=== PATIENT | female | born 1950 | race Caucasian/White ===

== ENCOUNTER 2017-01-02 20:38 | Emergency (ER) | payer OTHER ==
[~2017-01-02] VITALS: Ht 172.7 cm; Wt 100.0 kg
[2017-01-02 20:42] VITALS: BP 169/80; PULSE 96; RESP 16; O2SAT 96
[2017-01-02] MEDS ORDERED: HYDROcodone-APAP 5-325 mg Tablet PO ONE (21:20)
--- NOTE | 2017-01-02 21:39 | ED.REPORT ---
HPI-Extremity Problem Lower Date of Service Jan 02, 2017 ED Provider: Sandoval Godoy DO Mary Lou Zacarias is a 66-year-old woman who presents to the emergency department with worsening pain surrounding a wound on her left posterior lateral ankle. She stated that this began with treatment for dry skin, using [id number] hydration formulas that she got from right aid, she had been picking at the area , then she began to notice that it was looking more raw, and then she noticed the development of an ulcer. She had moved onto wound treatment using new skin , and honey, but the pain got worse, currently throbbing, and felt that it was necessary to report to the emergency department for evaluation. She denies any fevers, chills, additional pain with movement of her ankle, she describes throbbing at rest, particularly while supine, she says it is tender to touch from the inferior aspect and bearing weight. She denies any purulent discharge from the area. No previous history of wounds. She does not have a diagnosis of peripheral vascular disease, venous insufficiency, or diabetes. Nursing Notes Stated Complaint: POSS INFECTION LEFT HEEL Chief Complaint: Extremity Trauma Allergies: Coded Allergies: codeine (Verified Adverse Reaction, Severe, nausea, abd pain, 01/02/17) Scheduled Amoxicillin/Clav K 500-125 mg (Amoxicillin/Clav K 500-125 mg) 1 Each Tablet 1 TABLET PO BID Sulfamethoxazole/Trimeth 800-160 mg (Bactrim DS 800-160 mg) 1 Each Tablet 2 TABLET PO BID General Time Seen by MD: 21:00 Chief Complaint Ankle injury left Past Medical History Past Medical History HTN HLD HYPOTHYROIDISM Past Surgical History OOPHERECTOMY Reports: Appendectomy, Hysterectomy Family History FATHER- ALCOHOLISM MOTHER - ALIVE AND WELL Smoking History Current Every Day Smoker (15 CIG PER DAY) Social History Alcohol Use: Denies alcohol use Drug Use: Denies drug use Physical Exam General: Sitting on bedside. HEENT: Normocephalic, atraumatic, EOMI grossly, neck is supple without lymphadenopathy. Mucous membranes moist Cardiovascular: Regular rate and rhythm, no 3/6 blowing systolic murmur at RUSB , peripheral pulses 2/4 equal bilaterally. Bilateral lower extremities are warm , cap refill <3 seconds. Pulmonary: Clear to auscultation bilaterally, no W/R/R. Extremities: No edema appreciated. There is a 1 cm x 0.5cm ulcer to the posterior lateral inferior portion of the left ankle, initially covered by bandage, there is no purulence, mild bowel odor, there is no warmth to touch, there are no descending cords, there is minimal surrounding erythema, nontender. Does not pass the cutaneous layer, unable to visualize underlying fat. It is hemostatic. No crepitus. Neuro: Neurologically grossly intact, strength is equal bilaterally upper and lower extremities. MSK: Gait is antalgic, guarding weight to her left ankle, able to move extremities on their own volition, strength 5 out of 5 equal bilaterally to upper and lower extremities. She is able to rotate her ankle actively without any pain. Initial Vital Signs Vital Signs (First) Date Time Temp Pulse Resp B/P Pulse Ox O2 Delivery O2 Flow Rate FiO2 01/02/17 20:42 36.0 96 16 169/80 96 Room Air Initial VS: Reviewed Additional Physical Exam: Unable to obtain BRIDGETT. Interpretation & Diagnostics X-Ray Interpretation Xray Interpretation: IMPRESSION: No laura evidence of osteomyelitis. Plain film radiographs can be insensitive to osteomyelitis during the initial 15 days of the disease process. If there is clinical concern for osteomyelitis, then three-phase nuclear medicine bone scan is warranted. Dictated by: Yanni Estevez MD, PhD on 01/02/2017 at 21:46 Re-Eval/Medical Decision Med Decision/Clinical Course Patient was evaluated, found to have an ulcer in her left lower extremity, initial evaluation at concern for underlying necrotizing fasciitis, or possible osteomyelitis, x-ray was negative both these. She works in a [employer], and has exposure to MRSA. She was given antibiotics in the emergency department as well as Vicodin for pain. She stated mild relief from pain. Patient was instructed to follow-up with podiatry and her primary care doctor next week, to picker feeder antibiotics of Augmentin and Bactrim and begin taking them tomorrow. Red flag symptoms and return precautions were discussed with the patient, she stated understanding and agreement. Discharge & Departure Impression: Primary Impression: Ulcer of ankle Laterality: left Non-pressure ulcer stage: limited to breakdown of skin Qualified Code: L97.321 - Non-pressure chronic ulcer of left ankle limited to breakdown of skin Disposition: Home Discharge Condition All VS Reviewed: Yes Condition: Stable Patient Instructions: Acute Wound Care (ED) Additional Instructions: Thank you for entrusting us with your care. Today her ankle was evaluated, x-rays did not show that the underlying tissue or bone were involved with the infection. This is most likely due to common bacteria on the skin getting into a break in the skin. A given antibiotics while here in the emergency department, and you have been given a prescription for 2 antibiotics. Bactrim: Please take 2 pills by mouth 2 times a day for 7 days Augmentin: Please take 1 pill by mouth 2 times a day for 7 days. Please follow-up with your primary care doctor, I am also placing referral to podiatry, Cindy Singer. If you develop fever, chills, lightheadedness dizziness, rash ascending up her leg, or rapidly growing redness from around the wound, please return to the emergency department immediately. You are being given a prescription for Vicodin, please make sure you do not drink alcohol while you are taking this medication, do not take it while you are driving, and do not take it in any situation where you need to be awake and alert as it can cause drowsiness. Referrals: Laxmi Maynard (PCP) Reji Espino MD (Family) Elza Singer DPM Attending Statement I took a history of performed a physical examination. I agree with the note. This looks like an infected ulceration. She has bounding pulses with acute arterial insufficiency is unlikely. The area is not a classic region for ischemic ulcers anyways. She has no claudication symptoms. No evidence of a DVT. No calf symptoms whatsoever. This started as a crack in her skin is now infected. We will put her on appropriate antibiotics and refer to podiatry for follow-up. For some reason the blood pressure cuff could not picker feeder her blood pressure however should bounding pedal pulses and a manual blood pressure is 130 in her legs. copies to: Laxmi Maynard; Elza Singer DPM, Noah M DO Jan 02, 2017 21:17 Sandoval Godoy DO Jan 03, 2017 00:49
[2017-01-02] MEDS ORDERED: _HYDROcodone/APAP 5-325 mg Tablet PO PRN (21:40)
[2017-01-02] MEDS ORDERED: _Trimethoprim-Sulfa 160/800 mg Tablet PO SCH (21:40)
[2017-01-02] MEDS ORDERED: _Amoxicillin-Clavulanate 875-125 mg Tablet PO SCH (21:40)
[2017-01-02] MEDS ORDERED: Amoxicillin-Clav 875-125 mg Tablet PO ONE (21:45)
[2017-01-02] MEDS ORDERED: Trimethoprim-Sulfa 160 mg-800 mg Tablet PO ONE (21:45)
--- NOTE | 2017-01-02 21:48 | DRSVH ---
PROCEDURE: X-RAY LEFT ANKLE, MINIMUM THREE VIEWS ([id number]) INDICATIONS: nec fas/osteomyel eval. TECHNIQUE: 3 views of the ankle were acquired. COMPARISON: None. FINDINGS: Bones: No fractures or dislocations. Ankle mortise is normally aligned. No suspicious bony lesions . No periosteal reaction or laura bony destruction. Calcaneal bone spurs are noted. Soft tissues: No tibiotalar joint effusion. Achilles tendon appears normal. Lateral soft tissue swe lling is noted. No soft tissue gas. IMPRESSION: No laura evidence of osteomyelitis. Plain film radiographs can be insensitive to osteomy elitis during the initial 15 days of the disease process. If there is clinical concern for osteomyeli tis, then three-phase nuclear medicine bone scan is warranted. Dictated by: Yanni Estevez MD, PhD on 01/02/2017 at 21:46 Approved by: Yanni Estevez MD, PhD on 01/02/2017 at 21:47
[2017-01-02] MEDS ORDERED: AMOX1TAB11 PO (22:11)
[2017-01-02] MEDS ORDERED: SULF1TAB35 PO (22:11)
[2017-01-02 22:39] VITALS: BP 164/83; PULSE 88; RESP 16; O2SAT 98
== END 2017-01-02 23:09 | disposition home or self-care (01) ==
LOC: SED 20:38
DX: L97.321 Non-pressure chronic ulcer of left ankle limited to breakdown of skin (principal); I10 Essential (primary) hypertension; E03.9 Hypothyroidism, unspecified; E78.5 Hyperlipidemia, unspecified; F17.200 Nicotine dependence, unspecified, uncomplicated; Z88.5 Allergy status to narcotic agent

== ENCOUNTER 2017-02-02 13:58 | Inpatient (IN) | payer OTHER ==
[~2017-02-02] VITALS: Ht 172.7 cm; Wt 112.0 kg
[~2017-02-02 13:58] MED LIST: AMOX1TAB11 PO; SULF1TAB35 PO
[2017-02-02 18:45] VITALS: BP 125/76; PULSE 84; RESP 18; O2SAT 95
[2017-02-02] MEDS ORDERED: Senna-Docusate 8.6-50 mg Tablet PO PRN (19:20)
[2017-02-02] MEDS ORDERED: Polyethylene Glycol (PEG) 17 Gm Powder PO PRN (19:20)
[2017-02-02] MEDS ORDERED: Magnesium Hydroxide 355 mL Oral Suspension PO PRN (19:20)
[2017-02-02] MEDS ORDERED: Alum-Mag Hydrox-Simeth 30 mL Suspension PO PRN (19:20)
--- NOTE | 2017-02-02 19:33 | PCM.HPMED ---
Subjective Date of Service February 02, 2017 Primary Provider: Admitting Physician: Silver Tidwell Primary Care Physician: Laxmi Maynard Attending Physician: Silver Tidwell Chief Complaint: Swollen painful left foot History of Present Illness: 66-year-old female with perhaps peripheral vascular disease but no diabetes comes in after failing multiple courses of oral antibiotics and going to see outpatient building maintenance technician. She is directly admitted for IV antibiotics. 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 She denies fevers and chills. She has terrible pain that has been going on for the last month and the foot she must sleep with it down she cannot raise it up. She denies fevers chills or night sweats or anything that would be associated with sepsis. Review of Systems: Gen.: No fevers chills weight loss weight gain Eyes: no visual disturbances or blurring vision HEENT: No nose/throat drainage, no pain in ears or throat, no hearing loss Lymph: No lymph nodes noted Cardiac: No chest pain, orthopnea, PND, palpitations , pedal edema or dyspnea on exertion Pulmonary: no cough, wheezing or bringing up of sputum GI: No anorexia nausea vomiting blood or black in the stool : no dysuria hematuria urinary frequency or decrease in urine output Musculoskeletal: Joint swelling no joint pain no new muscle aches or back pain Neuro: No syncope, seizures no loss of consciousness no new focal weakness, numbness or tingling Psychiatric: New new anxiety insomnia or depression Endocrine: No new heat or cold intolerances polyuria or polydipsia Hematology: No lymphadenopathy or easy bleeding or bruising noted skin: No new rashes, stasis dermatitis painful red swollen left foot Allergies Coded Allergies: codeine (Verified Adverse Reaction, Severe, nausea, abd pain, 01/02/17) Home Medications HCTZ 25 mg daily Levoxyl 175 g daily Pravastatin 40 mg daily Elavil 30 mg at bedtime Gabapentin 300 mg at bedtime PMH ? PAD-patient states she is getting surgery to open up vessels in her legs. 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 She tells me her father of a heart attack is not clear what age when he was in to the hospital and went into DTs. Social History Hx Alcohol Use: No Hx Substance Use: No Smoking Status: Current Every Day Smoker Exam Vital Signs Vitals stable, afebrile Exam Gen.- A+ O 3 no apparent distress. Obese white female sitting up in a chair Eyes- open conjunctiva clear, pupils equal nonicteric Mouth- oral mucosa moist, no exudate ENT- ears normal, nose normal, hearing intact Neck- supple/trach midline CVS- RRR no murmur or gallop Lungs- CTA GI- NABS/NT soft, generous pannus Musc- moving 4 no obvious deformity Neuro- cranial nerves II through XII intact to gross examination, nonfocal Skin- warm and dry, no rashes/lesions/wounds noted Both feet are swollen, both feet are red, left foot is wrapped and tender I did not open the dressing Psych- pleasant and appropriate, Assessment & Plan 66-year-old female with presumed peripheral vascular disease being admitted after failing multiple outpatient treatments with antibiotics for cellulitis of the left foot. I will start her on Vanco/Zosyn and check her labs and I am going to presume she has hospital-acquired organisms that may be multi drug resistant because she has had multiple courses of oral antibiotics over the last month as well as getting in an SNF. I will probably discuss a treatment plan with infectious disease 02/03 Cellulitis left foot-as above Zosyn/vancomycin will get wound care consult and discuss further with podiatry 02/03. -Patient reports significant pain continuing Elavil and gabapentin which she states helps but Vicodin did not help her so I prescribe some morphine and Percocet Edema possible stasis dermatitis-we will elevate patient's legs Peripheral vascular disease, hypertension hyperlipidemia -Continuing HCTZ and pravastatin Tobacco abuse-cessation recommended, nicotine replacement Prophylaxis- DVT with SCDs as able and enoxaparin or heparin, GI not indicated Disposition- patient's a full code from/going home at the end of this. Cleve Costa MD February 02, 2017 19:33
[2017-02-02 19:50] LABS: BASOPHILS % (AUTO) 0.3 % (0-3); EOSINOPHILS % (AUTO) 3.8 % (0-5); MONOCYTES % (AUTO) 7.4 % (4-12); Mean Corpuscular Volume 92.6 fL (81-100); NEUTROPHILS % (AUTO) 62.8 % (40-74); Platelet Count 270 bil/L (150-400)
[2017-02-02] MEDS ORDERED: Piperacillin-Tazo 3.375 Gm Inj 3.375 GM in Dextrose 5% Minibag Plus 50 ML IV SCH (20:00)
[2017-02-02 20:12] LABS: Magnesium 1.7 mg/dL (1.6-2.6)
[2017-02-02 21:00] VITALS: BP 118/74; PULSE 78; RESP 20; O2SAT 94
[2017-02-02] MEDS ORDERED: 0.9% Sodium Chloride 250 ML ONE (21:03)
[2017-02-02] MEDS ORDERED: Vancomycin Inj 2,000 MG in 0.9% Sodium Chloride 500 ML IV ONE (21:05)
[2017-02-02] MEDS ORDERED: AMT25T PO (21:30)
[2017-02-02] MEDS ORDERED: GABA-502 PO (21:30)
[2017-02-02] MEDS ORDERED: PRAV40TA PO (21:30)
[2017-02-02] MEDS ORDERED: HYDR25TA4 PO (21:30)
[2017-02-02] MEDS ORDERED: LEVO175T5 PO (21:30)
[2017-02-02] MEDS: Vancomycin Dose per Pharmacist XX SCH ×2 (21:42→22:08)
[2017-02-02] MEDS: oxyCODONE-Acetamin 10-325 mg Tablet PO PRN (21:44)
--- NOTE | 2017-02-02 23:27 | PCM.CONPHA ---
Subjective Date of Service: February 02, 2017 Swollen painful left foot Reason for Pharmacy Consult: Vancomycin Dosing Objective Vital Signs Date Time Temp Pulse Resp B/P Pulse Ox O2 Delivery O2 Flow Rate FiO2 02/02/17 21:00 36.7 78 20 118/74 94 Room Air Weight (Kilograms): 112.000 Height (Feet): 5 Height (Inches): 8.00 Test 02/02/17 19:35 White Blood Count 12.2th/mm3 (3.8-10.1) Red Blood Count 4.87mil/mm3 (3.90-5.20) Hemoglobin 15.6g/dL (12.0-15.6) Hematocrit 45.1% (35.0-46.0) Mean Corpuscular Volume 92.6fL (81-100) Mean Corpuscular Hemoglobin 32.0pg (27.0-35.0) Mean Corpuscular Hemoglobin Concent 34.6% (32.0-37.0) Red Cell Distribution Width 13.0% (12.3-15.4) Platelet Count 270bil/L (150-400) Neutrophils (%) (Auto) 62.8% (40-74) Lymphocytes (%) (Auto) 25.4% (14-46) Monocytes (%) (Auto) 7.4% (4-12) Eosinophils (%) (Auto) 3.8% (0-5) Basophils (%) (Auto) 0.3% (0-3) Sodium Level 138mEq/L (134-144) Potassium Level 3.5mEq/L (3.5-5.2) Chloride Level 98mEq/L (97-108) Carbon Dioxide Level 22mmol/L (18-29) Blood Urea Nitrogen 11mg/dL (8-27) Creatinine 0.65mg/dL (0.57-1.00) Estimat Glomerular Filtration Rate 131mL/min (>59) Glucose Level 119mg/dL (60-99) Calcium Level 10.1mg/dL (8.5-10.1) Magnesium Level 1.7mg/dL (1.6-2.6) Total Bilirubin 0.4mg/dL (0.0-1.2) Aspartate Amino Transf (AST/SGOT) 20U/L (0-50) Alanine Aminotransferase (ALT/SGPT) 24U/L (0-32) Alkaline Phosphatase 86U/L (25-165) Total Protein 7.0g/dL (6.4-8.4) Albumin 4.0g/dL (3.4-5.0) Procalcitonin 0.03ng/mL (0.00-0.08) Hold Leroy Top Tube Received (Received) Assessment/Plan Assessment/Plan VANCOMYCIN MANAGEMENT A\ 66yo F Diabetic with Left Foot cellulitis Goal trough =10-15 Scr=0.65 ZEO=240 WBC 12.2 Received vancomycin 2000mg iv x1 at 2142 02/02 P\ Vancomycin 1500mg iv q12h with next dose at 1000 02/03 Daily creatinine and vancomycin trough 02/04 [address] [facility] February 02, 2017 23:27
[2017-02-03 00:40] VITALS: BP 122/73; PULSE 75; RESP 18; O2SAT 96
[2017-02-03] MEDS: oxyCODONE-Acetamin 10-325 mg Tablet PO PRN ×6 (01:20→21:03)
[2017-02-03] MEDS ORDERED: OMEP20TA24 PO (03:47)
[2017-02-03 04:25] VITALS: BP 121/77; PULSE 93; RESP 18; O2SAT 99
[2017-02-03] MEDS: Piperacillin-Tazo 3.375 Gm Inj 3.375 GM in Dextrose 5% Minibag Plus 50 ML IV SCH ×2 (05:49→14:08)
[2017-02-03 06:05] LABS: BASOPHILS % (AUTO) 0.5 % (0-3); EOSINOPHILS % (AUTO) 4.1 % (0-5); Mean Corpuscular Hemoglobin 31.6 pg (27.0-35.0); Mean Corpuscular Volume 92.8 fL (81-100); NEUTROPHILS % (AUTO) 58.9 % (40-74); Platelet Count 230 bil/L (150-400)
[2017-02-03 08:10] LABS: APPEARANCE,URINE CLEAR (CLEAR,HAZY); COLOR,URINE STRAW (YELLOW); OCCULT BLOOD,URINE NEGATIVE (NEGATIVE); UROBILINOGEN,URINE NORMAL (NORMAL)
[2017-02-03 08:39] VITALS: BP 114/71; PULSE 95; RESP 18; O2SAT 95
[2017-02-03] MEDS ORDERED: Vancomycin Inj 1,500 MG in 0.9% Sodium Chloride 500 ML IV SCH (10:00)
[2017-02-03] MEDS: Ondansetron 2 mg/mL 2 mL Inj IVPUSH PRN (12:01)
[2017-02-03 14:06] VITALS: BP 119/76; PULSE 91; RESP 18; O2SAT 96
[2017-02-03 16:36] VITALS: BP 125/71; PULSE 80; RESP 17; O2SAT 97
--- NOTE | 2017-02-03 17:33 | PCM.PNMED ---
Subjective Date of Service February 03, 2017 Subjective Patient feeling better, able to keep her leg up pain is better controlled. No chest pain, no dyspnea, no nausea or vomiting Exam Vital Signs Vital Sign - Last Date Time Temp Pulse Resp B/P Pulse Ox O2 Delivery O2 Flow Rate FiO2 02/03/17 16:36 36.4 80 17 125/71 97 Room Air Intake and Output 02/02/17 02/02/17 02/03/17 Cumulative From/Thru 14:59 22:59 06:59 02/02/17 18:37 - 02/03/17 05:50 Intake Total 1210 ml 1210 ml Output Total 800 ml 800 ml Balance 410 ml 410 ml Intake Oral 540 ml 540 ml IV Total 670 ml 670 ml Output Urine Total 800 ml 800 ml # Bowel Movements 0 0 Exam Gen.- A+ O 3 no apparent distress. Obese white female lying in bed Eyes- open conjunctiva clear, pupils equal nonicteric ENT- ears normal, nose normal, hearing intact Neck- supple/trach midline CVS- rate normal Lungs- normal rate no accessory muscle usage GI- NABS/NT soft, generous pannus Musc- moving 4 no obvious deformity Neuro- cranial nerves II through XII intact to gross examination, nonfocal Skin- warm and dry, no rashes/lesions/wounds noted Feet are less swollen, less erythematous and there is a wound on the left heel. Psych- pleasant and appropriate, Lab and Diagnostics Result Diagram: 02/03/1752602/03/17526 Assessment & Plan 66-year-old female with presumed peripheral vascular disease being admitted after failing multiple outpatient treatments with antibiotics for cellulitis of the left foot. I will start her on Vanco/Zosyn and check her labs and I am going to presume she has hospital-acquired organisms that may be multi drug resistant because she has had multiple courses of oral antibiotics over the last month as well as getting in an SNF. I will probably discuss a treatment plan with infectious disease 02/03 02/04 given benign pro-calcitonin levels and substantial improvement known grinding IV therapy from Vanco/Zosyn 2 Ancef will follow up labs/micro, pro- calcitonin, clinical picture in the a.m. Cellulitis left foot-as above Zosyn/vancomycin will get wound care consult and discuss further with podiatry 02/03. -Patient reports significant pain continuing Elavil and gabapentin which she states helps but Vicodin did not help her so I prescribe some morphine and Percocet Edema possible stasis dermatitis-we will elevate patient's legs Peripheral vascular disease, hypertension hyperlipidemia -Continuing HCTZ and pravastatin Tobacco abuse-cessation recommended, nicotine replacement Prophylaxis- DVT with SCDs as able and enoxaparin or heparin, GI not indicated Disposition- patient's a full code from/going home at the end of this. Cleve Costa MD February 03, 2017 17:33
[2017-02-03 19:37] VITALS: BP 127/74; PULSE 86; RESP 18; O2SAT 95
[2017-02-03] MEDS: CeFAZolin Inj 2 GM in IV Premix 1 EACH IV SCH (21:04)
[2017-02-03] MEDS: Pantoprazole 40 mg ER24 Tablet PO SCH (21:38)
[2017-02-04] MEDS: oxyCODONE-Acetamin 10-325 mg Tablet PO PRN ×4 (00:27→11:33)
[2017-02-04] MEDS: CeFAZolin Inj 2 GM in IV Premix 1 EACH IV SCH ×4 (03:07→21:08)
[2017-02-04 05:02] VITALS: BP 133/69; PULSE 79; RESP 20; O2SAT 95
[2017-02-04] MEDS ORDERED: Pantoprazole 20 mg ER24 Tablet PO SCH (06:30)
[2017-02-04 06:56] LABS: INR 0.9 ratio
[2017-02-04 06:57] LABS: BASOPHILS % (AUTO) 0.2 % (0-3); EOSINOPHILS % (AUTO) 4.3 % (0-5); MONOCYTES % (AUTO) 9.9 % (4-12); Mean Corpuscular Hemoglobin 31.8 pg (27.0-35.0); Mean Corpuscular Volume 93.5 fL (81-100); NEUTROPHILS % (AUTO) 64.5 % (40-74); Platelet Count 210 bil/L (150-400)
[2017-02-04] MEDS: Pantoprazole 40 mg ER24 Tablet PO SCH (07:17)
--- NOTE | 2017-02-04 08:28 | PCM.CHPPOD ---
Subjective Date of service February 04, 2017 History of Present Illness 66-year-old female evaluated at bedside resting comfortably in no acute distress. Patient states that she has mild discomfort associated with her left foot. Patient was admitted to [facility] be a direct admission yesterday from Dr. Elza Abarca office for treatment of an erythematous left plantar lateral foot ulceration. Patient denies any new issues overnight. She states that she has been feeling marginally better since her admission and subsequent placement on antibiotics. Allergy Allergies: Coded Allergies: codeine (Verified Adverse Reaction, Severe, nausea, abd pain, 01/02/17) Medications Amitriptyline (Amitriptyline) 25 Mg Tab 25 MG PO HS PRN PRN For Insomnia Gabapentin (Gabapentin) 300 Mg Capsule 300 MG PO HS Hydrochlorothiazide (Hydrochlorothiazide) 25 Mg Tablet 25 MG PO DAILY Levothyroxine (Levothyroxine) 175 Mcg Tablet 175 MCG PO DAILY Omeprazole Magnesium (Prilosec Otc) 20 Mg Tablet.dr 20 MG PO DAILY Pravastatin (Pravastatin) 40 Mg Tablet 40 MG PO DAILY Past Medical History Surgeries: Yes (ovarian cyst) Medical History: Surgical History: Social History Hx Alcohol Use: No Hx Substance Use: No Smoking Status: Current Every Day Smoker Podiatry Consult Exam Vital Signs Vital Sign - Last Date Time Temp Pulse Resp B/P Pulse Ox O2 Delivery O2 Flow Rate FiO2 02/04/17 05:02 36.7 79 20 133/69 95 Room Air Intake and Output 02/03/17 02/03/17 02/04/17 Cumulative From/Thru 15:00 23:00 07:00 02/02/17 18:37 - 02/04/17 06:17 Intake Total 2013 ml 840 ml 4063 ml Output Total 1200 ml 1450 ml 3450 ml Balance 813 ml -610 ml 613 ml Intake Oral 1332 ml 600 ml 2472 ml IV Total 681 ml 240 ml 1591 ml Output Urine Total 1200 ml 1450 ml 3450 ml # Bowel Movements 0 Result Diagram: 02/04/17 0615 02/04/1715 Lab Test 02/02/17 19:35 02/03/17 05:27 02/03/17 07:09 02/04/17 06:15 Magnesium Level 1.7mg/dL (1.6-2.6) Total Bilirubin 0.4mg/dL (0.0-1.2) Aspartate Amino Transf (AST/SGOT) 20U/L (0-50) Alanine Aminotransferase (ALT/SGPT) 24U/L (0-32) Alkaline Phosphatase 86U/L (25-165) Total Protein 7.0g/dL (6.4-8.4) Albumin 4.0g/dL (3.4-5.0) Hold Leroy Top Tube Received (Received) Triglycerides Level 225mg/dL (0-149) Cholesterol Level 173mg/dL (100-199) LDL Cholesterol, Calculated 93.000mg/dL (0-99) VLDL Cholesterol 45.000mg/dL HDL Cholesterol 35mg/dL (>39) Cholesterol/HDL Ratio 4.94 (0.0-4.4) Procalcitonin 0.04ng/mL (0.00-0.08) Urine Color Straw (YELLOW) Urine Appearance Clear (CLEAR,HAZY) Urine pH 6.0 (5.0-8.0) Urine Specific Anthony 1.010 (1.003-1.035) Urine Protein Negativemg/dL (NEG,TRACE) Urine Glucose (UA) Negativemg/dL (NEGATIVE) Urine Ketones Negativemg/dL (NEGATIVE) Urine Occult Blood Negative (NEGATIVE) Urine Nitrite Negative (NEGATIVE) Urine Bilirubin Negative (NEGATIVE) Urine Urobilinogen Normalmg/dL (NORMAL) Urine Leukocyte Esterase Negative (NEGATIVE) Urine RBC 0-2/hpf (0-2) Urine WBC 0-5/hpf (0-5) Urine Epithelial Cells Few/hpf (NONE-MOD) Urine Crystals None seen (NONE SEEN) Urine Bacteria Few/hpf (NONE-FEW) Urine Hyaline Casts None/lpf (NONE) Urine Granular Casts None seen (NONE SEEN) Urine Waxy Casts None seen (NONE SEEN) Urine Red Blood Cell Casts None seen (NONE SEEN) Urine White Blood Cell Casts None seen (NONE SEEN) Urine Mucus None seen (None Seen) Urine Trichomonas None seen (NONE SEEN) Urine Yeast None (NONE SEEN) Urinalysis Comment None Urine Culture Reflexed Not indicated Hold Urine Received (Received) White Blood Count 8.8th/mm3 (3.8-10.1) Red Blood Count 4.34mil/mm3 (3.90-5.20) Hemoglobin 13.8g/dL (12.0-15.6) Hematocrit 40.6% (35.0-46.0) Mean Corpuscular Volume 93.5fL (81-100) Mean Corpuscular Hemoglobin 31.8pg (27.0-35.0) Mean Corpuscular Hemoglobin Concent 34.0% (32.0-37.0) Red Cell Distribution Width 12.8% (12.3-15.4) Platelet Count 210bil/L (150-400) Neutrophils (%) (Auto) 64.5% (40-74) Lymphocytes (%) (Auto) 20.8% (14-46) Monocytes (%) (Auto) 9.9% (4-12) Eosinophils (%) (Auto) 4.3% (0-5) Basophils (%) (Auto) 0.2% (0-3) Prothrombin Time 9.6sec (8.1-12.5) Prothromb Time International Ratio 0.90ratio Sodium Level 136mEq/L (134-144) Potassium Level 4.1mEq/L (3.5-5.2) Chloride Level 96mEq/L (97-108) Carbon Dioxide Level 27mmol/L (18-29) Blood Urea Nitrogen 9mg/dL (8-27) Creatinine 0.61mg/dL (0.57-1.00) Estimat Glomerular Filtration Rate 141mL/min (>59) Glucose Level 126mg/dL (60-99) Calcium Level 9.5mg/dL (8.5-10.1) Exam General: Alert, Oriented X3, Cooperative, No Acute Distress Lower Extremities: Left: Edema localized Extremity warm Lower Extremity Pulses: Absent: Left Dorsalis Pedis Left Posterior Tibal Podiatry WOUND : Wound Location/Description Left plantar lateral foot ulceration full-thickness to subcutaneous tissue without exposed bone or tendon. There is no surrounding erythema the wound bed is 80% fibrotic with 20% red firm granulation tissue. There is minimal yellow drainage noted. There is no malodor. No fluctuance. No signs of abscess formation. The radha-ulcerative skin is intact Assessment & Plan Assessment Stable left plantar lateral foot ulceration, peripheral arterial disease Problems: Plan Wound inspected at bedside today and appears to be improving based on my discussion with Dr. Marin We will continue broad-spectrum antibiotics at this time in follow-up the wound cultures that were taken prior to her admission to narrow her antibiotics as warranted. Her wound was dressed today with Betadine soaked gauze dry sterile gauze Kerlix and a loosely applied Fabian bandage. This patient has an appointment in the near future to be evaluated for a potential bypass of her left lower extremity at [facility]. Weight-bear as tolerated with limited activity Podiatry will continue to follow, Dr. Abarca will evaluate the patient tomorrow and potentially give discharge recommendations. Ramiro Holland DPM February 04, 2017 08:28
[2017-02-04 09:20] VITALS: BP 113/71; PULSE 78; RESP 20; O2SAT 96
[2017-02-04] MEDS ORDERED: Vancomycin Serum Trough XX ONE (09:30)
[2017-02-04] MEDS: diphenhydrAMINE 25 mg Capsule PO PRN ×2 (10:37→21:02)
--- NOTE | 2017-02-04 12:30 | PCM.PNMED ---
Subjective Date of Service February 04, 2017 Subjective Patient still having pain in her legs. We are increasing gabapentin and I think I will change her over to furosemide for better diuresis. Her legs look better, she is elevating them, she is responding to cefazolin. She has seen podiatry and they have done some basic wound debridement while she has been here. She is also complaining of itching for which were going to go ahead and give her some Benadryl she is also having trouble sleeping. Exam Vital Signs Vital Sign - Last Date Time Temp Pulse Resp B/P Pulse Ox O2 Delivery O2 Flow Rate FiO2 02/04/17 09:20 36.6 78 20 113/71 96 Room Air Intake and Output 02/03/17 02/03/17 02/04/17 Cumulative From/Thru 15:00 23:00 07:00 02/02/17 18:37 - 02/04/17 06:17 Intake Total 2013 ml 840 ml 4063 ml Output Total 1200 ml 1450 ml 3450 ml Balance 813 ml -610 ml 613 ml Intake Oral 1332 ml 600 ml 2472 ml IV Total 681 ml 240 ml 1591 ml Output Urine Total 1200 ml 1450 ml 3450 ml # Bowel Movements 0 Exam Gen.- A+ O 3 no apparent distress. Obese white female lying in bed Eyes- open conjunctiva clear, pupils equal nonicteric ENT- ears normal, nose normal, hearing intact Neck- supple/trach midline CVS- rate normal Lungs- normal rate no accessory muscle usage GI- generous pannus Musc- moving 4 no obvious deformity Neuro- cranial nerves II through XII intact to gross examination, nonfocal Skin- warm and dry, no rashes/lesions/wounds noted Feet are less swollen, there is apparently erythema, left foot dressing C/D/ I I did not open it. Psych- pleasant and appropriate, Lab and Diagnostics Result Diagram: 02/04/1761402/04/17614 Assessment & Plan 66-year-old female with presumed peripheral vascular disease being admitted after failing multiple outpatient treatments with antibiotics for cellulitis of the left foot. I will start her on Vanco/Zosyn and check her labs and I am going to presume she has hospital-acquired organisms that may be multi drug resistant because she has had multiple courses of oral antibiotics over the last month as well as getting in an SNF. I will probably discuss a treatment plan with infectious disease 02/03 02/03 given benign pro-calcitonin levels and substantial improvement known grinding IV therapy from Vanco/Zosyn 2 Ancef will follow up labs/micro, pro- calcitonin, clinical picture in the a.m. 02/04 patient had debridement by podiatry 02/03, I changed her over to Ancef and she is doing well, giving a dose of furosemide and following up labs/micro-/ pro-calcitonin again in the a.m. Possible 02/05 discharge Cellulitis left foot-as above Zosyn/vancomycin will get wound care consult and discuss further with podiatry 02/03. -Patient reports significant pain continuing Elavil and gabapentin which she states helps but Vicodin did not help her so I prescribe some morphine and Percocet Edema possible stasis dermatitis-we will elevate patient's legs, furosemide 40 mg by mouth 01/31 for 1 to Peripheral vascular disease, hypertension hyperlipidemia -Continuing HCTZ and statin Tobacco abuse-cessation recommended, nicotine replacement Prophylaxis- DVT with SCDs as able and enoxaparin or heparin, GI not indicated Disposition- patient's a full code from/going home at the end of this. Cleve Costa MD February 04, 2017 12:30
[2017-02-04] MEDS: Ondansetron 2 mg/mL 2 mL Inj IVPUSH PRN (15:15)
[2017-02-04 15:39] VITALS: BP 145/83; PULSE 87; RESP 18; O2SAT 95
[2017-02-04 19:55] VITALS: BP 125/75; PULSE 87; RESP 18; O2SAT 93
--- NOTE | 2017-02-04 23:15 | PCM.PNPOD ---
Subjective Date of Service: February 04, 2017 Visit Information: Reason for Visit Cellulitis, Ulcer Left Heal Date of Admission: February 02, 2017 at 17:54 Subjective: Patient complains of some pain in her feet and feeling cold, but original wound pain is diminishing. Objective Vital Sign - Last Date Time Temp Pulse Resp B/P Pulse Ox O2 Delivery O2 Flow Rate FiO2 02/04/17 19:55 36.5 87 18 125/75 93 Room Air Intake and Output 02/03/17 02/03/17 02/04/17 Cumulative From/Thru 15:00 23:00 07:00 02/02/17 18:37 - 02/04/17 06:17 Intake Total 2013 ml 840 ml 4063 ml Output Total 1200 ml 1450 ml 3450 ml Balance 813 ml -610 ml 613 ml Intake Oral 1332 ml 600 ml 2472 ml IV Total 681 ml 240 ml 1591 ml Output Urine Total 1200 ml 1450 ml 3450 ml # Bowel Movements 0 Result Diagram: 02/04/17 0615 02/04/17 0615 Lab Test 02/02/17 19:35 02/03/17 05:27 02/03/17 07:09 02/04/17 06:15 Magnesium Level 1.7mg/dL (1.6-2.6) Total Bilirubin 0.4mg/dL (0.0-1.2) Aspartate Amino Transf (AST/SGOT) 20U/L (0-50) Alanine Aminotransferase (ALT/SGPT) 24U/L (0-32) Alkaline Phosphatase 86U/L (25-165) Total Protein 7.0g/dL (6.4-8.4) Albumin 4.0g/dL (3.4-5.0) Hold Leroy Top Tube Received (Received) Triglycerides Level 225mg/dL (0-149) Cholesterol Level 173mg/dL (100-199) LDL Cholesterol, Calculated 93.000mg/dL (0-99) VLDL Cholesterol 45.000mg/dL HDL Cholesterol 35mg/dL (>39) Cholesterol/HDL Ratio 4.94 (0.0-4.4) Procalcitonin 0.04ng/mL (0.00-0.08) Urine Color Straw (YELLOW) Urine Appearance Clear (CLEAR,HAZY) Urine pH 6.0 (5.0-8.0) Urine Specific [place] 1.010 (1.003-1.035) Urine Protein Negativemg/dL (NEG,TRACE) Urine Glucose (UA) Negativemg/dL (NEGATIVE) Urine Ketones Negativemg/dL (NEGATIVE) Urine Occult Blood Negative (NEGATIVE) Urine Nitrite Negative (NEGATIVE) Urine Bilirubin Negative (NEGATIVE) Urine Urobilinogen Normalmg/dL (NORMAL) Urine Leukocyte Esterase Negative (NEGATIVE) Urine RBC 0-2/hpf (0-2) Urine WBC 0-5/hpf (0-5) Urine Epithelial Cells Few/hpf (NONE-MOD) Urine Crystals None seen (NONE SEEN) Urine Bacteria Few/hpf (NONE-FEW) Urine Hyaline Casts None/lpf (NONE) Urine Granular Casts None seen (NONE SEEN) Urine Waxy Casts None seen (NONE SEEN) Urine Red Blood Cell Casts None seen (NONE SEEN) Urine White Blood Cell Casts None seen (NONE SEEN) Urine Mucus None seen (None Seen) Urine Trichomonas None seen (NONE SEEN) Urine Yeast None (NONE SEEN) Urinalysis Comment None Urine Culture Reflexed Not indicated Hold Urine Received (Received) White Blood Count 8.8th/mm3 (3.8-10.1) Red Blood Count 4.34mil/mm3 (3.90-5.20) Hemoglobin 13.8g/dL (12.0-15.6) Hematocrit 40.6% (35.0-46.0) Mean Corpuscular Volume 93.5fL (81-100) Mean Corpuscular Hemoglobin 31.8pg (27.0-35.0) Mean Corpuscular Hemoglobin Concent 34.0% (32.0-37.0) Red Cell Distribution Width 12.8% (12.3-15.4) Platelet Count 210bil/L (150-400) Neutrophils (%) (Auto) 64.5% (40-74) Lymphocytes (%) (Auto) 20.8% (14-46) Monocytes (%) (Auto) 9.9% (4-12) Eosinophils (%) (Auto) 4.3% (0-5) Basophils (%) (Auto) 0.2% (0-3) Prothrombin Time 9.6sec (8.1-12.5) Prothromb Time International Ratio 0.90ratio Sodium Level 136mEq/L (134-144) Potassium Level 4.1mEq/L (3.5-5.2) Chloride Level 96mEq/L (97-108) Carbon Dioxide Level 27mmol/L (18-29) Blood Urea Nitrogen 9mg/dL (8-27) Creatinine 0.61mg/dL (0.57-1.00) Estimat Glomerular Filtration Rate 141mL/min (>59) Glucose Level 126mg/dL (60-99) Calcium Level 9.5mg/dL (8.5-10.1) Exam General: Alert, Oriented X3, Cooperative, No Acute Distress Lower Extremities: Left: Edema localized Extremity warm Lower Extremity Pulses: Doppler: Right Dorsalis Pedis Right Posterior Tibal Absent: Left Dorsalis Pedis Left Posterior Tibal Podiatry WOUND : Wound Location/Description 2.5cm x 1.2xm wound, lateral left heel. 0.2cm deep, fibrous 50% and pink granular 50%. pain on palpation. Significant 2+ pitting edema in feet and lower legs. Pallor on elevation. Assessment & Plan Problems: (1) PAD (peripheral artery disease) Plan: February 16 consult with [place] vascular surgeons for inflow aortic disease. Long-term smoker, recent, non-healing wound with infection. Status: Acute ICD Code: I73.9 (2) Cellulitis Qualifiers: Site of cellulitis: extremity Site of cellulitis of extremity: lower extremity Laterality: left Qualified Code: L03.116 - Cellulitis of left lower limb Plan: Continue IV antibiotics another 24-48 hours. Find out what reasonable pain control regimen will be for next month outpatient before vascular intervention can be rendered. Expect dc home on Thursday. Dressing changed today with Betadine soaked gauze and Fabian wrap,repeat tomorrow. Status: Acute ICD Code: L03.90 Elza Singer DPM February 04, 2017 23:15
[2017-02-05] MEDS: CeFAZolin Inj 2 GM in IV Premix 1 EACH IV SCH ×4 (03:28→22:05)
[2017-02-05] MEDS: oxyCODONE-Acetamin 10-325 mg Tablet PO PRN ×4 (04:43→22:58)
[2017-02-05 05:15] VITALS: BP 113/75; PULSE 81; RESP 18; O2SAT 93
[2017-02-05 05:57] LABS: BASOPHILS % (AUTO) 0.2 % (0-3); EOSINOPHILS % (AUTO) 4.2 % (0-5); MONOCYTES % (AUTO) 7.7 % (4-12); Mean Corpuscular Hemoglobin 31.7 pg (27.0-35.0); Mean Corpuscular Volume 89.2 fL (81-100); NEUTROPHILS % (AUTO) 56.1 % (40-74); Platelet Count 228 bil/L (150-400)
[2017-02-05 06:28] LABS: Magnesium 1.6 mg/dL (1.6-2.6)
[2017-02-05] MEDS: Pantoprazole 40 mg ER24 Tablet PO SCH (08:08)
[2017-02-05] MEDS ORDERED: 0.9% Sodium Chloride 250 ML ONE (08:37)
[2017-02-05 12:59] VITALS: BP 123/78; PULSE 82; RESP 17; O2SAT 96
--- NOTE | 2017-02-05 14:16 | PCM.PNMED ---
Subjective Date of Service February 05, 2017 Subjective Still having pain and throbbing in her left foot. No chest pain, no dyspnea, no nausea or vomiting Exam Vital Signs Vital Sign - Last Date Time Temp Pulse Resp B/P Pulse Ox O2 Delivery O2 Flow Rate FiO2 02/05/17 12:59 36.3 82 17 123/78 96 Room Air Intake and Output 02/04/17 02/04/17 02/05/17 Cumulative From/Thru 15:00 23:00 07:00 02/02/17 18:37 - 02/05/17 05:15 Intake Total 1326 ml 1800 ml 7189 ml Output Total 1250 ml 2750 ml 7450 ml Balance 76 ml -950 ml -261 ml Intake Oral 1326 ml 1700 ml 5498 ml IV Total 100 ml 1691 ml Output Urine Total 1250 ml 2750 ml 7450 ml # Bowel Movements 0 0 0 Exam Gen.- A+ O 3 no apparent distress. Obese white female lying in bed Eyes- open conjunctiva clear, pupils equal nonicteric ENT- ears normal, nose normal, hearing intact Neck- supple/trach midline CVS- rate normal Lungs- normal rate no accessory muscle usage GI- generous pannus Musc- moving 4 no obvious deformity Neuro- cranial nerves II through XII intact to gross examination, nonfocal Skin- warm and dry, no rashes/lesions/wounds noted Feet are less swollen/erythema (virtually gone), left foot dressing C/D/I I did not open it. Psych- pleasant and appropriate, Lab and Diagnostics Result Diagram: 02/05/1751902/05/17519 Assessment & Plan 66-year-old female with presumed peripheral vascular disease being admitted after failing multiple outpatient treatments with antibiotics for cellulitis of the left foot. I will start her on Vanco/Zosyn and check her labs and I am going to presume she has hospital-acquired organisms that may be multi drug resistant because she has had multiple courses of oral antibiotics over the last month as well as getting in an SNF. I will probably discuss a treatment plan with infectious disease 02/03 02/03 given benign pro-calcitonin levels and substantial improvement known grinding IV therapy from Vanco/Zosyn 2 [facility] will follow up labs/micro, pro- calcitonin, clinical picture in the a.m. 02/04 patient had debridement by podiatry 02/03, I changed her over to Ancef and she is doing well, giving a dose of furosemide and following up labs/micro-/ pro-calcitonin again in the a.m. 02/05 continuing Ancef for another day for podiatry continuing diuresis with furosemide. Clinically stable/improving. Pro-calcitonin continues to remain normal. No changes to the regimen. Encouraging her to utilize gabapentin for pain. Cellulitis left foot-as above Zosyn/vancomycin will get wound care consult and discuss further with podiatry 02/03. -Patient reports significant pain continuing Elavil and gabapentin which she states helps but Vicodin did not help her so I prescribe some morphine and Percocet Edema possible stasis dermatitis-we will elevate patient's legs, furosemide 40 mg by mouth 02/04 Peripheral vascular disease, hypertension hyperlipidemia -Continuing HCTZ and statin Tobacco abuse-cessation recommended, nicotine replacement Prophylaxis- DVT with SCDs as able and enoxaparin or heparin, GI not indicated Disposition- patient's a full code from/going home at the end of this. Cleve Costa MD February 05, 2017 14:16
[2017-02-05 20:37] VITALS: BP 129/64; PULSE 95; RESP 20; O2SAT 93
[2017-02-05] MEDS: diphenhydrAMINE 25 mg Capsule PO PRN (22:15)
[2017-02-06] MEDS: CeFAZolin Inj 2 GM in IV Premix 1 EACH IV SCH ×2 (03:14→10:30)
[2017-02-06 04:40] VITALS: BP 115/77; PULSE 79; RESP 18; O2SAT 95
[2017-02-06] MEDS: Pantoprazole 40 mg ER24 Tablet PO SCH (08:05)
[2017-02-06] MEDS: oxyCODONE-Acetamin 10-325 mg Tablet PO PRN (08:17)
[2017-02-06 09:16] LABS: BASOPHILS % (AUTO) 0.3 % (0-3); EOSINOPHILS % (AUTO) 4.4 % (0-5); MONOCYTES % (AUTO) 8.7 % (4-12); Mean Corpuscular Hemoglobin 31.3 pg (27.0-35.0); NEUTROPHILS % (AUTO) 58.6 % (40-74); Platelet Count 239 bil/L (150-400)
[2017-02-06 09:54] LABS: Magnesium 1.6 mg/dL (1.6-2.6)
[2017-02-06 09:58] LABS: ERYTHROCYTE SEDIMENTATION RATE 9 mm/hr (0-40)
--- NOTE | 2017-02-06 12:46 | PCM.DIMED ---
Discharge Instructions Date of Service February 06, 2017 Dates of Hospitalization February 02, 2017 at 17:54 Discharge Diagnosis Discharge Diagnosis Left foot cellulitis, edema, peripheral vascular disease Diet Discharge Diet: Heart Healthy Activity Discharge Activity: No restrictions, Other (elevate her feet when able) Call your provider Call your provider for: Fever or Chills, Other (erythema spreading up the) Patient Instructions Patient Instructions Finish the antibiotics, take the furosemide/potassium chloride until the swelling dissipates and then as needed for swelling. Follow-up Provider: Elza Singer DPM Follow-up with PCP in: Other (call for follow-up early next week) Provider: Laxmi Maynard Follow-up in: Other (call, you may need her to be managing the furosemide and electrolytes) Cleve Costa MD February 06, 2017 12:46
[2017-02-06] MEDS ORDERED: POTA10TA38 PO (12:51)
[2017-02-06] MEDS ORDERED: OXYC-466 PO (12:51)
[2017-02-06] MEDS ORDERED: Lactobacillus Acidophilus PO (12:51)
[2017-02-06] MEDS ORDERED: NICO1PAT5 TOPICAL (12:51)
[2017-02-06] MEDS ORDERED: CEPH500T PO (12:51)
[2017-02-06] MEDS ORDERED: GABA300C PO (12:51)
[2017-02-06] MEDS ORDERED: Senna/Docusate Sodium PO (12:51)
--- NOTE | 2017-02-06 14:03 | PCM.DC.MED ---
Discharge Summary Date of Service February 06, 2017 Dates of Hospitalization Date of Hospital Admission February 02, 2017 at 17:54 Date of Discharge: February 06, 2017 Providers: Admitting Physician: Silver Tidwell Primary Care Physician: Laxmi Maynard Attending Physician: Silver Tidwell Diagnosis at Time of Discharge Diagnosis at Time of Discharge Left foot cellulitis, edema, peripheral vascular disease Consultations PodiatryEnmanuel/Skyler Brief History 66-year-old female with perhaps peripheral vascular disease but no diabetes comes in after failing multiple courses of oral antibiotics and going to see outpatient tobacco sweeper. She is directly admitted for IV antibiotics. 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 She denies fevers and chills. She has terrible pain that has been going on for the last month and the foot she must sleep with it down she cannot raise it up. She denies fevers chills or night sweats or anything that would be associated with sepsis. Hospital Course 66-year-old female with presumed peripheral vascular disease being admitted after failing multiple outpatient treatments with antibiotics for cellulitis of the left foot. I will start her on Vanco/Zosyn and check her labs and I am going to presume she has hospital-acquired organisms that may be multi drug resistant because she has had multiple courses of oral antibiotics over the last month as well as getting in an SNF. I will probably discuss a treatment plan with infectious disease 02/03 02/03 given benign pro-calcitonin levels and substantial improvement known grinding IV therapy from Vanco/Zosyn 2 Ance[facility] will follow up labs/micro, pro- calcitonin, clinical picture in the a.m. 02/04 patient had debridement by podiatry 02/03, I changed her over to Ancef and she is doing well, giving a dose of furosemide and following up labs/micro-/ pro-calcitonin again in the a.m. 02/05 continuing Ancef for another day for podiatry continuing diuresis with furosemide. Clinically stable/improving. Pro-calcitonin continues to remain normal. No changes to the regimen. Encouraging her to utilize gabapentin for pain. 02/06 patient's foot looks a little bit redder than it has labs are unremarkable, spoke to Dr. Singer will follow-up next week. We will discharge with Keflex 1 g 4 times a day for 7 days, furosemide/KCl for edema, more gabapentin and Percocet 10/325 for pain. Patient feels that she can elevate leg better. Perhaps her throbbing in her leg is from decreased arterial flow in the foot is elevated secondary to her severe peripheral vascular disease which will be hopefully corrected surgically next month. We will need to remain vigilant over that foot given the similarity of appearance from stasis dermatitis/vascular insufficiency and cellulitis. Patient has been advised to seek attention if the erythema worsens begins to creep up her leg or she has fevers or chills. Patient proudly announced that she was able to sleep with both her feet elevated without throbbing overnight, I wonder how long they have been down prior to my seeing her, she sitting up in a chair and her feet have worsened dependent edema than it has looked in days along with the erythema. Cellulitis left foot-as above Zosyn/vancomycin will get wound care consult and discuss further with podiatry 02/03. -Patient reports significant pain continuing Elavil and gabapentin which she states helps but Vicodin did not help her so I prescribe some morphine and Percocet Edema possible stasis dermatitis-we will elevate patient's legs, furosemide 40 mg by mouth 02/04 Peripheral vascular disease, hypertension hyperlipidemia -Continuing HCTZ and statin Tobacco abuse-cessation recommended, nicotine replacement Prophylaxis- DVT with SCDs as able and enoxaparin or heparin, GI not indicated Disposition- patient's a full code from/going home at the end of this. Exam Vital Signs (Last) Date Time Temp Pulse Resp B/P Pulse Ox O2 Delivery O2 Flow Rate FiO2 02/06/17 04:40 36.4 79 18 115/77 95 Room Air Exam Gen.- A+ O 3 no apparent distress. Obese white female lying in bed Eyes- open conjunctiva clear, pupils equal nonicteric ENT- ears normal, nose normal, hearing intact Neck- supple/trach midline CVS- rate normal Lungs- normal rate no accessory muscle usage GI- generous pannus Musc- moving 4 no obvious deformity Neuro- cranial nerves II through XII intact to gross examination, nonfocal Skin- warm and dry, no rashes/lesions/wounds noted Feet are less swollen/erythema as returned bilaterally along with edema, left foot wound is dressed C/D/I. Psych- pleasant and appropriate, Test 02/02/17 19:35 02/03/17 05:27 02/03/17 07:09 02/04/17 06:15 Total Bilirubin 0.4mg/dL (0.0-1.2) Aspartate Amino Transf (AST/SGOT) 20U/L (0-50) Alanine Aminotransferase (ALT/SGPT) 24U/L (0-32) Alkaline Phosphatase 86U/L (25-165) Total Protein 7.0g/dL (6.4-8.4) Albumin 4.0g/dL (3.4-5.0) Hold Leroy Top Tube Received (Received) Triglycerides Level 225mg/dL (0-149) Cholesterol Level 173mg/dL (100-199) LDL Cholesterol, Calculated 93.000mg/dL (0-99) VLDL Cholesterol 45.000mg/dL HDL Cholesterol 35mg/dL (>39) Cholesterol/HDL Ratio 4.94 (0.0-4.4) Urine Color Straw (YELLOW) Urine Appearance Clear (CLEAR,HAZY) Urine pH 6.0 (5.0-8.0) Urine Specific [place] 1.010 (1.003-1.035) Urine Protein Negativemg/dL (NEG,TRACE) Urine Glucose (UA) Negativemg/dL (NEGATIVE) Urine Ketones Negativemg/dL (NEGATIVE) Urine Occult Blood Negative (NEGATIVE) Urine Nitrite Negative (NEGATIVE) Urine Bilirubin Negative (NEGATIVE) Urine Urobilinogen Normalmg/dL (NORMAL) Urine Leukocyte Esterase Negative (NEGATIVE) Urine RBC 0-2/hpf (0-2) Urine WBC 0-5/hpf (0-5) Urine Epithelial Cells Few/hpf (NONE-MOD) Urine Crystals None seen (NONE SEEN) Urine Bacteria Few/hpf (NONE-FEW) Urine Hyaline Casts None/lpf (NONE) Urine Granular Casts None seen (NONE SEEN) Urine Waxy Casts None seen (NONE SEEN) Urine Red Blood Cell Casts None seen (NONE SEEN) Urine White Blood Cell Casts None seen (NONE SEEN) Urine Mucus None seen (None Seen) Urine Trichomonas None seen (NONE SEEN) Urine Yeast None (NONE SEEN) Urinalysis Comment None Urine Culture Reflexed Not indicated Hold Urine Received (Received) Prothrombin Time 9.6sec (8.1-12.5) Prothromb Time International Ratio 0.90ratio Test 02/06/17 09:08 White Blood Count 7.4th/mm3 (3.8-10.1) Red Blood Count 4.60mil/mm3 (3.90-5.20) Hemoglobin 14.4g/dL (12.0-15.6) Hematocrit 40.5% (35.0-46.0) Mean Corpuscular Volume 88.0fL (81-100) Mean Corpuscular Hemoglobin 31.3pg (27.0-35.0) Mean Corpuscular Hemoglobin Concent 35.6% (32.0-37.0) Red Cell Distribution Width 12.9% (12.3-15.4) Platelet Count 239bil/L (150-400) Neutrophils (%) (Auto) 58.6% (40-74) Lymphocytes (%) (Auto) 27.6% (14-46) Monocytes (%) (Auto) 8.7% (4-12) Eosinophils (%) (Auto) 4.4% (0-5) Basophils (%) (Auto) 0.3% (0-3) Erythrocyte Sedimentation Rate 9mm/hr (0-40) Sodium Level 136mEq/L (134-144) Potassium Level 3.9mEq/L (3.5-5.2) Chloride Level 95mEq/L (97-108) Carbon Dioxide Level 27mmol/L (18-29) Blood Urea Nitrogen 11mg/dL (8-27) Creatinine 0.71mg/dL (0.57-1.00) Estimat Glomerular Filtration Rate 119mL/min (>59) Glucose Level 136mg/dL (60-99) Calcium Level 9.8mg/dL (8.5-10.1) Magnesium Level 1.6mg/dL (1.6-2.6) Procalcitonin 0.06ng/mL (0.00-0.08) Discharge Medications Discharge Medications ([Lactobacillus Acidophilus]) 1 TABLET TABLET 2 TABLET PO PCHS Prescribed by: ALLIE LU MD Cephalexin (Cephalexin) 500 Mg Tablet 1,000 MG PO QID Prescribed by: ALLIE LU MD Gabapentin (Gabapentin) 300 Mg Capsule 300 MG PO HS (Reported) Hydrochlorothiazide (Hydrochlorothiazide) 25 Mg Tablet 25 MG PO DAILY (Reported ) Levothyroxine (Levothyroxine) 175 Mcg Tablet 175 MCG PO DAILY (Reported) Omeprazole Magnesium (Prilosec Otc) 20 Mg Tablet.dr 20 MG PO DAILY (Reported) Potassium Chloride (Potassium Chloride) 10 Meq Tab.er.prt 10 MEQ PO DAILYWM Prescribed by: ALLIE LU MD Pravastatin (Pravastatin) 40 Mg Tablet 40 MG PO DAILY (Reported) As needed ([Senna/Docusate Sodium]) 1 TABLET TABLET 1 TABLET PO BID PRN PRN constipation Prescribed by: ALLIE LU MD Amitriptyline (Amitriptyline) 25 Mg Tab 25 MG PO HS PRN PRN For Insomnia ( Reported) Gabapentin (Neurontin) 300 Mg Capsule 300 MG PO Q4 PRN PRN pain Prescribed by: ALLIE LU MD Nicotine 14 mg/24 hr Patch (Nicotine 14 mg/24 hr Patch) 1 Each Patch.td24 1 PATCH TOPICAL DAILY PRN PRN For Tobacco Withdrawal Prescribed by: ALLIE LU MD oxyCODONE-Acetaminophen 10-325 mg (oxyCODONE-Acetaminophen 10-325 mg) 1 Each Tablet 1 TAB PO Q3H PRN PRN For Pain Prescribed by: ALLIE LU MD Followup Plan Discharge Diet: Heart Healthy Discharge Activity: No restrictions, Other (elevate her feet when able) Patient Instructions Finish the antibiotics, take the furosemide/potassium chloride until the swelling dissipates and then as needed for swelling. Follow-up Provider: Elza Singer DPM Follow-up with PCP in: Other (call for follow-up early next week) Provider: Laxmi Maynard Follow-up in: Other (call, you may need her to be managing the furosemide and electrolytes) Time spent Greater than 30 minutes Attending Statement Patient needs CBC, BMP, mag 02/06 and if she is using the furosemide with any frequency at least weekly initially. I would have a low tolerance to reimage the foot and get cultures if pain/erythema worsens. copies to: Laxmi Maynard; Elza Singer DPM, Andris E MD February 06, 2017 14:03
[2017-02-06 14:17] VITALS: BP 129/81; PULSE 85; RESP 16; O2SAT 93
[2017-02-06] MEDS ORDERED: FURO40SO4 PO (15:33)
--- NOTE | 2017-02-06 18:14 | PCM.PNPOD ---
Subjective Date of Service: February 06, 2017 Visit Information: Reason for Visit Cellulitis, Ulcer Left Heal Date of Admission: February 02, 2017 at 17:54 Subjective: Patient still experiencing pain in left heel, more so when elevated. It improves when dependent. Percocet takes the edge off and she would like to have some outpatient until she can see her vascular surgeon. Objective Vital Sign - Last Date Time Temp Pulse Resp B/P Pulse Ox O2 Delivery O2 Flow Rate FiO2 02/06/17 14:17 36.5 85 16 129/81 93 Room Air Intake and Output 02/05/17 02/05/17 02/06/17 Cumulative From/Thru 15:00 23:00 07:00 02/02/17 18:37 - 02/06/17 06:02 Intake Total 1750 ml 1300 ml 74764 ml Output Total 1800 ml 1000 ml 18093 ml Balance -50 ml 300 ml -11 ml Intake Oral 1520 ml 1200 ml 8218 ml IV Total 230 ml 100 ml 2021 ml Output Urine Total 1800 ml 1000 ml 78936 ml # Bowel Movements 0 0 Result Diagram: 02/06/17 0908 02/06/17 0908 Lab Test 02/02/17 19:35 02/03/17 05:27 02/03/17 07:09 02/04/17 06:15 Total Bilirubin 0.4mg/dL (0.0-1.2) Aspartate Amino Transf (AST/SGOT) 20U/L (0-50) Alanine Aminotransferase (ALT/SGPT) 24U/L (0-32) Alkaline Phosphatase 86U/L (25-165) Total Protein 7.0g/dL (6.4-8.4) Albumin 4.0g/dL (3.4-5.0) Hold Leroy Top Tube Received (Received) Triglycerides Level 225mg/dL (0-149) Cholesterol Level 173mg/dL (100-199) LDL Cholesterol, Calculated 93.000mg/dL (0-99) VLDL Cholesterol 45.000mg/dL HDL Cholesterol 35mg/dL (>39) Cholesterol/HDL Ratio 4.94 (0.0-4.4) Urine Color Straw (YELLOW) Urine Appearance Clear (CLEAR,HAZY) Urine pH 6.0 (5.0-8.0) Urine Specific [place] 1.010 (1.003-1.035) Urine Protein Negativemg/dL (NEG,TRACE) Urine Glucose (UA) Negativemg/dL (NEGATIVE) Urine Ketones Negativemg/dL (NEGATIVE) Urine Occult Blood Negative (NEGATIVE) Urine Nitrite Negative (NEGATIVE) Urine Bilirubin Negative (NEGATIVE) Urine Urobilinogen Normalmg/dL (NORMAL) Urine Leukocyte Esterase Negative (NEGATIVE) Urine RBC 0-2/hpf (0-2) Urine WBC 0-5/hpf (0-5) Urine Epithelial Cells Few/hpf (NONE-MOD) Urine Crystals None seen (NONE SEEN) Urine Bacteria Few/hpf (NONE-FEW) Urine Hyaline Casts None/lpf (NONE) Urine Granular Casts None seen (NONE SEEN) Urine Waxy Casts None seen (NONE SEEN) Urine Red Blood Cell Casts None seen (NONE SEEN) Urine White Blood Cell Casts None seen (NONE SEEN) Urine Mucus None seen (None Seen) Urine Trichomonas None seen (NONE SEEN) Urine Yeast None (NONE SEEN) Urinalysis Comment None Urine Culture Reflexed Not indicated Hold Urine Received (Received) Prothrombin Time 9.6sec (8.1-12.5) Prothromb Time International Ratio 0.90ratio Test 02/06/17 09:08 White Blood Count 7.4th/mm3 (3.8-10.1) Red Blood Count 4.60mil/mm3 (3.90-5.20) Hemoglobin 14.4g/dL (12.0-15.6) Hematocrit 40.5% (35.0-46.0) Mean Corpuscular Volume 88.0fL (81-100) Mean Corpuscular Hemoglobin 31.3pg (27.0-35.0) Mean Corpuscular Hemoglobin Concent 35.6% (32.0-37.0) Red Cell Distribution Width 12.9% (12.3-15.4) Platelet Count 239bil/L (150-400) Neutrophils (%) (Auto) 58.6% (40-74) Lymphocytes (%) (Auto) 27.6% (14-46) Monocytes (%) (Auto) 8.7% (4-12) Eosinophils (%) (Auto) 4.4% (0-5) Basophils (%) (Auto) 0.3% (0-3) Erythrocyte Sedimentation Rate 9mm/hr (0-40) Sodium Level 136mEq/L (134-144) Potassium Level 3.9mEq/L (3.5-5.2) Chloride Level 95mEq/L (97-108) Carbon Dioxide Level 27mmol/L (18-29) Blood Urea Nitrogen 11mg/dL (8-27) Creatinine 0.71mg/dL (0.57-1.00) Estimat Glomerular Filtration Rate 119mL/min (>59) Glucose Level 136mg/dL (60-99) Calcium Level 9.8mg/dL (8.5-10.1) Magnesium Level 1.6mg/dL (1.6-2.6) Procalcitonin 0.06ng/mL (0.00-0.08) Exam General: Alert, Oriented X3, Cooperative, No Acute Distress Lower Extremities: Left: Edema localized Extremity warm Lower Extremity Pulses: Doppler: Right Dorsalis Pedis Right Posterior Tibal Absent: Left Dorsalis Pedis Left Posterior Tibal Podiatry WOUND : Wound Location/Description Left lateral heel ulcer is 3cm x1cm and 0.2cm deep. Less fibrotic, more pink, but not granular. No erythema. Moderate dependent rubor, resolves completely on elevation. Assessment & Plan Problems: (1) PAD (peripheral artery disease) Plan: February 16 consult with [facility] for inflow aortic disease. Long-term smoker, recent, non-healing wound with improved infection. Status: Acute ICD Code: I73.9 (2) Cellulitis Qualifiers: Site of cellulitis: extremity Site of cellulitis of extremity: lower extremity Laterality: left Qualified Code: L03.116 - Cellulitis of left lower limb Plan: Home on PO cephalexin today Percocet PO at home for next month outpatient before vascular intervention can be rendered. Dressing changed today with Betadine on wound, adhesive foam. Supplies dispensed for home use until next week's appointment in my office. February 11, 3:30pm. Status: Acute ICD Code: L03.90 Elza Singer DPM February 06, 2017 18:14
== END 2017-02-06 15:42 | disposition home or self-care (01) | DRG 383 ==
LOC: OSC 17:54
PROVIDERS: ADMIT Internal Medicine; ATTEND Hospitalist
DX: L03.116 Cellulitis of left lower limb (principal); L97.421 Non-pressure chronic ulcer of left heel and midfoot limited to breakdown of skin; I10 Essential (primary) hypertension; I73.9 Peripheral vascular disease, unspecified; E78.5 Hyperlipidemia, unspecified; E03.9 Hypothyroidism, unspecified; F17.210 Nicotine dependence, cigarettes, uncomplicated